=== PATIENT | female | born 1955 | race African-American/Black ===

== ENCOUNTER 2018-06-27 07:53 | Day surgery (SDC) | payer OTHER ==
[2018-06-26 09:05] VITALS: BMI 29.3
[2018-06-27] MEDS ORDERED: PROPOFOL 20 ML ONE ×2 (08:05)
[2018-06-27 08:38] VITALS: TEMP 98.3
[2018-06-27 10:17] VITALS: BP 121/71; PULSE 71
== END 2018-06-27 10:20 | disposition home or self-care (01) ==
LOC: FASU-ENDO 07:53
PROVIDERS: ATTEND Internal Medicine Gastroenterology
PROC: 0D5H8ZZ Destruction of Cecum, Via Natural or Artificial Opening Endoscopic (ICD-10-PCS; principal; 2018-06-27 09:29)
DX: Z12.11 Encounter for screening for malignant neoplasm of colon (principal); K55.20 Angiodysplasia of colon without hemorrhage; K64.8 Other hemorrhoids
CPT/HCPCS: 82962